=== PATIENT | female | born 1980 | race Hispanic/Latino ===

== ENCOUNTER 2021-06-26 23:44 | Emergency (ER) | payer MEDICAID, OTHER ==
[~2021-06-26] VITALS: Ht 170.2 cm; Wt 74.4 kg
[~2021-06-26 23:44] MED LIST: FERR325C PO; IBUP-2070 PO; PREN-66 PO
[2021-06-27] MEDS ORDERED: ORPHENADRINE CITRATE 30 MG/ML ML IV ONE (00:30)
[2021-06-27] MEDS ORDERED: KETOROLAC 30MG VIAL (30MG/ML) IV ONE (00:30)
[2021-06-27] MEDS ORDERED: ONDANSETRON 4MG INJ IVP ONE (00:30)
[2021-06-27] MEDS ORDERED: METOCLOPRAMIDE 10 MG/2 ML VIAL IVP ONE (00:30)
[2021-06-27 01:23] LABS: BASOPHILS % (AUTO) 0.2 % (0.0-5.0); EOSINOPHILS % (AUTO) 2.8 % (0.0-8.0); HEMATOCRIT 35.6 % (36-48); LYMPHOCYTES % (AUTO) 31.9 % (21.0-51.0); MEAN CORPUSCULAR HEMOGLOBIN 28.6 pg (27.0-33.0); MEAN CORPUSCULAR HGB CONC 32.6 g/dL (32.0-36.0); MEAN CORPUSCULAR VOLUME 87.9 fL (79-99); MONOCYTES % (AUTO) 7.5 % (3.0-13.0); NEUTROPHILS % (AUTO) 57.4 % (40.0-77.0); PLATELET COUNT (AUTO) 279 K/uL (130-400); RED BLOOD CELL COUNT(AUTO) 4.05 MIL/uL (4.00-5.50); RED CELL DISTRIBUTION WIDTH 13.8 % (11.0-15.5); WHITE BLOOD COUNT (AUTO) 4.9 K/uL (4.8-10.8)
[2021-06-27 01:24] LABS: APPEARANCE,URINE CLEAR (CLEAR); BILIRUBIN,URINE NEGATIVE (NEGATIVE); COLOR,URINE YELLOW (YELLOW); GLUCOSE, URINE (UA) NEGATIVE (NEGATIVE); KETONES,URINE NEGATIVE (NEGATIVE); LEUKOCYTE ESTERASE ,URINE NEGATIVE (NEGATIVE); NITRATE,URINE NEGATIVE (NEGATIVE); OCCULT BLOOD,URINE MODERATE (NEGATIVE); PROTEIN,URINE NEGATIVE (NEGATIVE); UROBILINOGEN,URINE 0.2 mg/dL (0.2-1.0)
[2021-06-27 01:29] LABS: HCG,QUAL RESULT NEGATIVE (NEGATIVE)
[2021-06-27 01:37] LABS: BACTERIA,URINE Rare /HPF (None Seen); CREATININE 0.7 mg/dL (0.5-1.5); POTASSIUM 3.6 mmol/L (3.5-5.1); SQUAMOUS EPITHELIAL CELL,UR 0-2 /HPF (0-2); WBC,URINE 0-1 /HPF (0-1)
[2021-06-27 01:40] LABS: ALBUMIN 3.7 g/dL (3.5-5.0); BILIRUBIN,TOTAL 0.3 mg/dL (0.2-1.0); TOTAL PROTEIN, SERUM 6.6 g/dL (6.0-8.3)
[2021-06-27] MEDS ORDERED: METO-296 PO (02:24)
[2021-06-27] MEDS ORDERED: MELO7.5T12 PO (02:24)
[2021-06-27] MEDS ORDERED: CYCL-309 PO (02:24)
[2021-06-27] MEDS ORDERED: ONDA4TAB10 PO (02:24)
[2021-06-27 02:35] VITALS: BP 116/65
== END 2021-06-27 02:40 | disposition home or self-care (01) ==
LOC: EDH 23:44
DX: E86.9 Volume depletion, unspecified (principal); R51.9 Headache, unspecified; M62.838 Other muscle spasm; Z79.1 Long term (current) use of non-steroidal anti-inflammatories (NSAID)
CPT/HCPCS: 36415; 70450; 80053; 81001; 81025; 85025; 93005; 96374; 96375; 99285; J1885; J2360; J2405; J2765